=== PATIENT | female | born 2000 | race Caucasian/White ===

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

== ENCOUNTER 2023-08-13 14:04 | Outpatient (CLI) | payer BC | END 2023-08-13 14:05 | disposition home or self-care (01) | LOC: BICULT 14:04 | PROVIDERS: ATTEND Internal Medicine Gastroenterology | DX: R10.13 Epigastric pain (principal); K58.9 Irritable bowel syndrome, unspecified | CPT/HCPCS: 76705 ==